=== PATIENT | male | born 1985 | race Caucasian/White ===

== ENCOUNTER 2018-10-01 06:19 | Emergency (ER) | payer BC ==
[~2018-10-01] VITALS: Ht 177.8 cm; Wt 90.7 kg
--- OUTSIDE RECORDS SUMMARY | 2018-10-01 06:22 | XMS REPORT | Continuity of Care Document ---
Author Author [facility] Interface Address Unknown Phone Unavailable Problems Problem Status Onset Date Classification Date Reported Comments Source Onychomycosis Active Diagnosis 04/11/2017 Elton A Destineeisphilippes Unspecified disease of nail Active Problem 04/11/2017 Elton A Maislos Onychomycosis - Dermatophytosis of nail Active Problem 04/11/2017 Elton A Maislos Nail abnormality Active Problem 04/11/2017 Elton A Maislos Tinea pedis of both feet Active Problem 04/11/2017 Elton A Maislos Bunion Hallux Valgus acquired Active Problem 04/11/2017 Elton A Maislos Tinea Pedis/Athletes foot - Dermatophytosis of foot Active Problem 04/11/2017 Elton A Maislos Bunion of great toe of left foot Active Problem 04/11/2017 Elton A Maislos Bunion of right foot Active Problem 04/11/2017 Elton A Destineeisphilippes Medications Medication Details Route Status Patient Instructions Ordering Provider Order Date Source Allergies, Adverse Reactions, Alerts Substance Category Reaction Severity Reaction type Status Date Reported Comments Source N.K.D.A. Adverse Reaction Info Not Available Adverse Reaction Active 04/08/2017 Elton Ruddy Normans Immunizations Immunization Date Given Site Status Last Updated Comments Source Results Order Name Results Value Reference Range Date Interpretation Comments Source Vital Signs Vital Sign Value Date Comments Source Weight 236 08/22/2013 Elton A Maislos Heart Rate 93 08/22/2013 Elton A Maislos Diastolic (mm Hg) 85 08/22/2013 Elton A Maislos Systolic (mm Hg) 138 08/22/2013 Elton A Maislos Weight 236 07/19/2013 Elton A Maislos Heart Rate 87 07/19/2013 Elton A Maislos Diastolic (mm Hg) 72 07/19/2013 Elton A Maislos Systolic (mm Hg) 128 07/19/2013 Elton Fox [place] Weight 236 07/12/2013 Elton A Bettye Heart Rate 87 07/12/2013 Elton Fox [place] Diastolic (mm Hg) 72 07/12/2013 Elton Fox [place] Systolic (mm Hg) 128 07/12/2013 Elton Fox [place] Encounters Location Location Details Encounter Type Encounter Number Reason For Visit Attending Provider ADM Date DC Date Status Source Elton Wen DPM, NICKI new patient [id number] 07/12/2013 07/12/2013 Elton Wen DPM, NICKI new patient [id number] 07/12/2013 07/12/2013 Elton Wen DPM, NICKI new patient [id number] 07/12/2013 07/12/2013 Elton Wen DPM, NICKI new patient [id number] 07/12/2013 07/12/2013 Elton Wen DPM, NICKI Follow- Up [id number] 07/19/2013 07/19/2013 Elton Wen DPM, PA Follow- Up [id number] 07/19/2013 07/19/2013 Elton Wen DPM, PA Unknown [id number] 07/19/2013 07/19/2013 Elton Wen DPM, PA Unknown [id number] 07/19/2013 07/19/2013 Elton Wen DPM, PA Unknown [id number] 07/19/2013 07/19/2013 Elton Wen DPM, PA Unknown [id number] 07/19/2013 07/19/2013 Elton Wen DPM, PA Follow- Up [id number] 08/22/2013 08/22/2013 Elton Wen Procedures Procedure Code Date Perfomer Comments Source
--- OUTSIDE RECORDS SUMMARY | 2018-10-01 06:22 | XMS REPORT | Clinical Summary ---
Author Author [employer] Organization [employer] Address Unknown Phone Unavailable Care Team Providers Care Blanker Operator Name Role Phone Asked, No Pcp PCP Unavailable Allergies Comments Active Allergy Reactions Severity Noted Date No Known Drug Allergies 04/08/2016 Medications End Date Status Medication Sig Dispensed Refills Start Date Active metoprolol tartrate Take 25 mg by 0 (LOPRESSOR) 25 mg tablet mouth as needed. Active ODEFSEY 200-25-25 mg Take 1 tablet 90 tablet 2 tablet by mouth 8 daily. 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 Encounters Care Team Description Date Type Specialty Monica Cooper MD Human immunodeficiency virus I infection (Primary Dx); manager intermediate use of drug 06/22/2018 Office Visit Infectious Diseases Valeria Dorsey MA 06/22/2018 Refill Infectious Diseases Monica Cooper MD Human immunodeficiency virus I infection; manager intermediate use of drug 04/30/2018 Lab Lab Monica Cooper MD Human immunodeficiency virus I infection (Primary Dx); manager intermediate use of drug 04/26/2018 Telephone Infectious Diseases Monica Cooper MD 04/22/2018 Lab Lab after 09/30/2017 Social History Date Tobacco Use Types Packs/Day Years Used Never Smoker Smokeless Tobacco: Never Used Alcohol Use Drinks/Week oz/Week Comments Yes social Sex Assigned at Date Recorded Not on file Industry Job Start Date Occupation Not on file Not on file Not on file Travel End Travel History Travel Start No recent travel history available. Last Filed Vital Signs Time Taken Vital Sign Reading 06/22/2018 9:05 AM CDT Blood Pressure 135/76 06/22/2018 9:05 AM CDT Pulse 85 06/22/2018 9:05 AM CDT Temperature 36.9 C (98.5 F) - Respiratory Rate - 06/22/2018 9:05 AM CDT Oxygen Saturation 95% - Inhaled Oxygen - Concentration 06/22/2018 9:05 AM CDT Weight 100 kg (221 lb) - Height - - Body Mass Index - Plan of Treatment Care Team Description Date Type Specialty Monica Cooper MD [address] [facility] [address] [place] [address] [phone] 12/28/2018 Office Visit Infectious Diseases Health Maintenance Due Date Last Done Comments MMR VACCINES (1 of - 1988 Standard series) VARICELLA VACCINES (1 2000 2 - 2-dose adolescent series) INFLUENZA VACCINE 06/02/2018 HEPATITIS B VACCINES Aged Out No longer eligible based on patient's age to complete this topic IPV VACCINES Aged Out No longer eligible based on patient's age to complete this topic MENINGOCOCCAL VACCINE Aged Out No longer eligible based on patient's age to complete this topic Procedures Comments Procedure Name Priority Date/Time Associated Diagnosis HIV-1 GENOTYPING Routine 04/30/2018 2:35 PM CDT HIV-1 INTEGRASE GENOTYPE Routine 04/30/2018 2:35 PM CDT URINALYSIS, COMPLETE, Routine 04/30/2018 Human immunodeficiency WITH REFLEX TO CULTURE 2:35 PM CDT virus I infection manager intermediate use of drug HEPATITIS C ANTIBODY Routine 04/30/2018 Human immunodeficiency 2:35 PM CDT virus I infection manager intermediate use of drug HEPATITIS A ANTIBODY Routine 04/30/2018 Human immunodeficiency TOTAL 2:35 PM CDT virus I infection manager intermediate use of drug HEPATITIS B SURFACE Routine 04/30/2018 Human immunodeficiency ANTIGEN 2:35 PM CDT virus I infection correction use of drug HEPATITIS B SURFACE Routine 04/30/2018 Human immunodeficiency ANTIBODY 2:35 PM CDT virus I infection correction use of drug HEPATITIS B CORE ANTIBODY Routine 04/30/2018 Human immunodeficiency TOTAL 2:35 PM CDT virus I infection correction use of drug RPR (MONITOR) WITH REFLEX Routine 04/30/2018 Human immunodeficiency TO TITER (REFL) 2:35 PM CDT virus I infection correction use of drug TB GOLD QUANTIFERON Routine 04/30/2018 Human immunodeficiency 2:35 PM CDT virus I infection correction use of drug [id number] [id number] TEST Routine 04/30/2018 Human immunodeficiency 2:35 PM CDT virus I infection manager intermediate use of drug TOXOPLASMA ABS IGG/IGM Routine 04/30/2018 Human immunodeficiency 2:35 PM CDT virus I infection correction use of drug T CELL LYMPHOCYTE SUBSET Routine 04/30/2018 Human immunodeficiency PANEL 4 2:35 PM CDT virus I infection manager intermediate use of drug HIV 1 RNA, QUANTITATIVE Routine 04/30/2018 Human immunodeficiency REAL TIME PCR 2:35 PM CDT virus I infection correction use of drug LIPID PANEL Routine 04/30/2018 Human immunodeficiency 2:35 PM CDT virus I infection manager intermediate use of drug COMPREHENSIVE METABOLIC Routine 04/30/2018 Human immunodeficiency PANEL 2:35 PM CDT virus I infection correction use of drug CBC WITH PLATELET AND Routine 04/30/2018 Human immunodeficiency DIFFERENTIAL 2:35 PM CDT virus I infection correction use of drug after 09/30/2017 Results * HIV-1 Integrase genotype (04/30/2018 2:35 PM CDT) Value of last viral load B copies/mL [facility] Date viral load collected B [facility] Raltegravir resistance TNP [facility] Comment: TEST(S) NOT PERFORMED: RALTEGRAVIR RESISTANCE ELVITEGRAVIR RESISTANCE DOLUTEGRAVIR RESISTANCE Test Not Performed We were unable to obtain a genotype from this sample. Reasons for failure to genotype commonly include: insufficient viral load, mutations in the genome at the priming sites, or presence of PCR inhibitors. Please correlate this result with a recent load for this patient, and resubmit a new sample if warranted. Resulting Agency Comment Performing Organization Information: Site ID: [id number] Name: [facility] Address: [address] [place] [phone] Director: Bryan Gardner MD Performing Organization Address [facility] [place] [facility] Centercode Phone Number [facility] [address] [place] [address] [phone] * Toxoplasma Abs IgG/IgM (04/30/2018 2:35 PM CDT) Toxoplasma IgG <7.20 IU/mL [facility] Comment: [facility] II IU/mL Interpretation ------ <7.20 Negative 7.20-8.79E quivocal >8.79 Positive Toxoplasma IgM <8.00 AU/mL [facility] Comment: [facility] AU/mL II Interpretation ----- <8.00 Negative 8.00-9.99 Equivocal >9.99 Positive Specimen Blood Resulting Agency Comment Performing Organization Information: Site ID: [id number] Name: [facility] Address: [address] [place] [phone] Director: Dr. Wayne Salter Performing Organization Address [facility]/[place] [facility] Centercode Phone Number [facility] [address] [place] [phone] II * T cell Lymphocyte Subset Panel 4 (04/30/2018 2:35 PM CDT) CD4% 42 30 - 61 % [facility] CD4 absolute count 1,115 490 - 1,740 cells/uL [facility] II CD8% 19 12 - 42 % [facility] CD8 absolute count 499 180 - 1,170 cells/uL [facility] CD4/CD8 ratio 2.24 0.86 - 5.00 [facility] II Lymphocytes, absolute 2,658 850 - 3,900 cells/uL [facility] II Specimen Blood Resulting Agency Comment Performing Organization Information: Site ID: [id number] Name: [facility] Address: [address] [place] [phone] Director: Dr. Wayne Salter Performing Organization Address City/[facility]/Zipcode Phone Number [facility] [address] [place] [address] II * RPR (Monitor) with Reflex to Titer (REFL) (04/30/2018 2:35 PM CDT) RPR (monitor) w/refl NON-REACTIVE NON-REACTIVE [facility] titer KEELER Specimen Blood Resulting Agency Comment Performing Organization Information: Site ID: [id number] Name: [facility] Address: [address] [place] [phone] Director: Eunice Kwon Performing Organization Address [facility] [place] [facility] Centercode Phone Number [facility] [address] [address] * URINALYSIS, COMPLETE, WITH REFLEX TO CULTURE (04/30/2018 2:35 PM CDT) Color, UA YELLOW YELLOW [facility] Appearance CLEAR CLEAR [facility] Specific gravity, urine 1.010 1.001 - 1.035 [facility] KE[facility] pH, urine 6.0 5.0 - 8.0 [facility] Glucose, urine NEGATIVE NEGATIVE [facility] Bilirubin, UA NEGATIVE NEGATIVE [facility] Ketones, UA NEGATIVE NEGATIVE [facility] Occult blood, urine NEGATIVE NEGATIVE [facility] Protein, UA NEGATIVE NEGATIVE [facility] Nitrite, UA NEGATIVE NEGATIVE [facility] Leukocyte esterase, UA NEGATIVE NEGATIVE [facility] WBC, UA NONE SEEN < OR=5 /HPF [facility] RBC, UA NONE SEEN < OR=2 /HPF [facility] Squamous epithelial NONE SEEN < OR=5 /HPF [facility] cells, UA KEELER Bacteria, UA NONE SEEN NONE SEEN /HPF [facility] Hyaline casts, UA NONE SEEN NONE SEEN /LPF [facility] Reflex NO CULTURE INDICATED [facility] Resulting Agency Comment Performing Organization Information: Site ID: [id number] Name: [facility] Address: [address] [place] [phone] Director: Eunice Kwon Performing Organization Address City/[facility]/Zipcode Phone Number [facility] [address] [address] * HIV 1 RNA, QUANTITATIVE REAL TIME PCR (04/30/2018 2:35 PM CDT) HIV-1 RNA by PCR, Qn <20 NOT DETECTED NOT DETECTED copies/[facility] II HIV-1 RNA by PCR, Qn <1.30 NOT DETECTED NOT DETECTED [facility] Comment: copies/[facility] This test was performed using II Real-Time Polymerase Chain Reaction. Reportable Range: 20 copies/mL to 10,000,000 copies/mL (1.30 log copies/mL to 7.00 log copies/mL). Resulting Agency Comment Performing Organization Information: Site ID: Name: [facility] Address: [address] [place] [address] Director: Dr. Wayne Salter Performing Organization Address City/[facility]/[place] [facility] Centercotx Phone Number [place] [facility] [place] [address] II * HLA B5701 test (04/30/2018 2:35 PM CDT) HLA B 5701 typing Negative [facility] Comment: [employer] The allele HLA-B*5701 is CHANTILLY associated with Abacavir hypersensitivity reaction (HSR). A negative result for HLA-B*5701 does not rule out the possibility of Abacavir HSR. Genetic counseling as needed. RESULTS REVIEWED BY: Susy Lockwood, Ph.D.,[facility] Jeweler Apprentice, Molecular Genetics References: Lee Lebron, et al. Lancet. 2002 2:359(6655): 727-32 Lee Lebron et al. N Engl J Med. 2008 358(6): 568-79 Typing performed by using -PCR with reflex to the FDA-cleared LABType(R) SSO Kit. The -PCR portion of this test was developed and its analytical performance characteristics have been determined by [facility] [place], [place].It has not been cleared or approved by the U.S. Food and Drug Administration.This assay has been validated pursuant to the CLIA regulations and is used for clinical purposes. Resulting Agency Comment Performing Organization Information: Site ID: AMD Name: [facility] Address: [address] [place] [phone] Director: Terrance French M.D.,PhD Performing Organization Address City/State/Zipcode Phone Number [facility]/[place] [address] [place], [place] [phone] [place] * TB GOLD Quantiferon (04/30/2018 2:35 PM CDT) Quantiferon TB gold NEGATIVE NEGATIVE [facility] Comment: KEELER Negative test result. M. tuberculosis complex infection unlikely. Quantiferon NIL value 0.02 IU/mL [facility] Quantiferon mitogen NIL >10.00 IU/mL [facility] value KEELER Quantiferon TB NIL value <0.00 IU/mL [facility] Comment: KEELER The Nil tube value is used to determine if the patient has a preexisting immune response which could cause a false-positive reading on the test. In order for a test to be valid, the Nil tube must have a value of less than or equal to 8.0 IU/mL. The mitogen control tube is used to assure the patient has a healthy immune status and also serves as a control for correct blood handling and incubation. It is used to detect false-negative readings. The mitogen tube must have a gamma interferon value of greater than or equal to 0.5 IU/mL higher than the value of the Nil tube. The TB antigen tube is coated with the M. tuberculosis specific antigens. For a test to be considered positive, the TB antigen tube value minus the Nil tube value must be greater than or equal to 0.35 IU/mL. For additional information, please refer to http://education.[employer].com/faq/QFT (This link is being provided for informational/ educational purposes only.) Specimen Blood Resulting Agency Comment Performing Organization Information: Site ID: RGA Name: [facility] Address: [address] [place] [phone] Director: Eunice Kwon Performing Organization Address [facility]/Zipcode Phone Number [facility] [place] [phone] * HIV-1 genotyping (04/30/2018 2:35 PM CDT) HIV-1 genotype NOT DETECTED [facility] Comment: We are unable to obtain a Genotype from this sample. The most common reasons for failure to genotype are insufficient viral load, mutations in the viral genome at the assay priming sites, and presence of inhibitory substance in the sample. Please correlate this result with any recent viral load for this patient and resubmit if clinically warranted. A minimum viral load of 400 copies/mL is required for testing. HIV Subtype: NOT DETERMINED Antiretroviral drugsResistance Mutations Detected Predicte d ! ! NRTIs ! ! ZDV (zidovudine or Retrovir)!N/A! ABC (abacavir or Ziagen)!N/A! ddI (didanosine or Videx) !N/A! 3TC (lamivudine or Epivir)!N/A! FTC (emtricitabine or Emtriva)!N/A! d4T (stavudine or Zerit)!N/A! TDF (tenofovir or Viread) !N/A! __!___! ! ! NNRTIs ! ! ETR (etravirine or Intelence) !N/A! EFV (efavirenz or Sustiva)!N/A! NVP (nevirapine or Viramune)!N/A! RPV (rilpivirine or Edurant)!N/A! __!___! ! ! PIs ! ! FPV (fos-amprenavir or Lexiva)!N/A! IDV (indinavir or Crixivan) !N/A! NFV (nelfinavir or Viracept)!N/A! SQV (saquinavir or Invirase)!N/A! LPV (lopinavir or Kaletra)!N/A! ATV (atazanavir or Reyataz) !N/A! TPV (tipranavir or Aptivus) !N/A! DRV (darunavir or Prezista) !N/A! ! ! __!___! PRB=PROBABLE OR EMERGING RESISTANCE OTHER MUTATIONS DETECTED: RT GENE MUTATIONS: N/A [place] GENE MUTATIONS: N/A The [facility] March 2018 Interpretation Algorithm The method used in this test is RT-PCR and sequencing Of the HIV-1 polymerase gene. The phrases "resistance predicted" and "probable Or emerging resistance" refer to the application of The interpretive rules. The FDA has not reviewed all of the interpretive rules used by the laboratory to predict drug resistance. FDA may not currently recognize some of the HIV gene mutations reported as predictive of drug resistance, but the laboratory considers these mutations to be associated with resistance to anti-viral drugs based on current clinical or scientific studies. The test has been validated pursuant to CLIA regulations and is not considered investigational or for research use only. Treatment decisions should be made in consideration of All relevant clinical and laboratory findings and the prescribing information for the drugs. This test was developed and its analytical performance characteristics have been determined by [facility]. It has not been cleared or approvedby FDA. This assay has been validated pursuant to theCLIA regulations and is used for clinical purposes. Resulting Agency Comment Performing Organization Information: Site ID: [id number] Name: [facility] Address: [address] [place] [phone] Director: Bryan Gardner MD Performing Organization Address City/State/Zipcode Phone Number [facility] [address] [place], [place] [phone] * Hepatitis C antibody (04/30/2018 2:35 PM CDT) Hepatitis C Ab NON-REACTIVE NON-REACTIVE [facility] Signal/cutoff 0.02 <1.00 [facility] KE[facility]ER Specimen Blood Resulting Agency Comment Performing Organization Information: Site ID: RGA Name: [facility] Address: [address] [place] [phone] Director: Eunice Kwon Performing Organization Address [facility]/[place] [facility] Centercode [place] [address] * Hepatitis A antibody total (04/30/2018 2:35 PM CDT) Hepatitis A total Ab NON-REACTIVE NON-REACTIVE [facility] KE[facility]ER Specimen Blood Resulting Agency Comment Performing Organization Information: Site ID: RGA Name: [facility] Address: [address] [place] [phone] Director: Eunice Kwon Performing Organization Address [facility]/[place] [facility] Centercode [place] [address] * Hepatitis B core antibody total (04/30/2018 2:35 PM CDT) Hepatitis B core total Ab NON-REACTIVE NON-REACTIVE [facility] Specimen Blood Resulting Agency Comment Performing Organization Information: Site ID: RGA Name: [facility] Address: [address] [place] [phone] Director: Eunice Kwon Performing Organization Address City/State/Zipcode Phone Number [facility] [address] [address] * Hepatitis B surface antibody (04/30/2018 2:35 PM CDT) Hepatitis B surface Ab REACTIVE (A) NON-REACTIVE [facility] KE[facility] Specimen Blood Resulting Agency Comment Performing Organization Information: Site ID: RGA Name: [facility] Address: [address] [place] [phone] Director: Eunice Kwon Performing Organization Address City/[facility]/[place] [facility] Centercode Phone Number [employer] [facility] [address] [place] [address] * Hepatitis B surface antigen (04/30/2018 2:35 PM CDT) Hepatitis B surface Ag NON-REACTIVE NON-REACTIVE [facility] Specimen Blood Resulting Agency Comment Performing Organization Information: Site ID: A Name: [facility] Address: [address] [place] [phone] Director: Eunice Kwon Performing Organization Address City/State/[place] [facility] Centercode Phone Number [facility] [address] [place] [address] * CBC with platelet and differential (04/30/2018 2:35 PM CDT) WBC 6.2 3.8 - 10.8 Thousand/uL [facility] RBC 4.84 4.20 - 5.80 Million/uL [facility] HGB 15.6 13.2 - 17.1 g/dL [facility] HCT 44.7 38.5 - 50.0 % [facility] MCV 92.4 80.0 - 100.0 fL [facility] MCH 32.2 27.0 - 33.0 pg [facility] MCHC 34.9 32.0 - 36.0 g/dL [facility] RDW 12.6 11.0 - 15.0 % [facility] Platelet count 224 140 - 400 Thousand/uL [facility] MPV 11.6 7.5 - 12.5 fL [facility] Neutrophils, absolute 2,802 1,500 - 7,800 cells/uL [facility] Lymphocytes, absolute 2,598 850 - 3,900 cells/uL [facility] Monocytes, absolute 626 200 - 950 cells/uL [facility] Eosinophils, absolute 112 15 - 500 cells/uL [facility] Basophils, absolute 62 0 - 200 cells/uL [facility] Neutrophils 45.2 % [facility] Lymphocytes 41.9 % [facility] Monocytes 10.1 % [facility] Eosinophils 1.8 % [facility] Basophils + RC 1.0 % [facility] Specimen Blood Resulting Agency Comment Performing Organization Information: Site ID: [id number] Name: [facility] Address: [address] [place] [phone] Director: Eunice Kwon Performing Organization Address [facility]/[place] [facility] Centercotx Phone Number [employer] [address] [address] * Lipid panel (04/30/2018 2:35 PM CDT) Cholesterol, total 203 (H) <200 mg/dL [facility] HDL cholesterol 46 >40 mg/dL [facility] Triglycerides 112 <150 mg/dL [facility] LDL cholesterol 135 (H) mg/dL (calc) [facility] [employer] [facility] Comment: KEELER Reference range: <100 Desirable range <100 mg/dL for primary prevention; <70 mg/dL for patients with CHD or diabetic patients with > or=2 CHD risk factors. LDL-C is now calculated using the Prabha calculation, which is a validated novel method providing better accuracy than the Friedewald equation in the estimation of LDL-C. Branden SORTO et al. CHELLE. 2013;310(19): 2102-7430 (http://education.[facility] Plus/faq/YJX023) Cholesterol/HDL ratio 4.4 <5.0 (calc) [facility] Non-HDL cholesterol 157 (H) <130 mg/dL (calc) [facility] Comment: KEELER For patients with diabetes plus 1 major ASCVD risk factor, treating to a non-HDL-C goal of <100 mg/dL (LDL-C of <70 mg/dL) is considered a therapeutic option. Specimen Blood Resulting Agency Comment Performing Organization Information: Site ID: RGA Name: [facility] Address: [address] [place] [phone] Director: Eunice Kwon Performing Organization Address [facility] [place] [facility]x Phone Number [employer] [address] [address] * Comprehensive metabolic panel (04/30/2018 2:35 PM CDT) Glucose 102 (H) 65 - 99 mg/dL [facility] Comment: KEELER Fasting reference interval For someone without known diabetes, a glucose value between 100 and 125 mg/dL is consistent with prediabetes and should be confirmed with a follow-up test. BUN, whole blood 22 7 - 25 mg/dL [facility] Creatinine 0.82 0.60 - 1.35 mg/dL [facility] EGFR Non-Afr. Citizen Of [place] 119 > OR=60 mL/min/1.73m2 [facility] EGFR 138 > OR=60 mL/min/1.73m2 [facility] BUN/creatinine ratio NOT APPLICABLE 6 - 22 (calc) [facility] Sodium 136 135 - 146 mmol/L [facility] Potassium 4.2 3.5 - 5.3 mmol/L [facility] Chloride 104 98 - 110 mmol/L [facility] CO2 25 20 - 31 mmol/L [facility] Calcium 9.8 8.6 - 10.3 mg/dL [facility] Protein 7.5 6.1 - 8.1 g/dL [facility] Albumin, S 4.9 3.6 - 5.1 g/dL [facility] Globulin, total 2.6 1.9 - 3.7 g/dL (calc) [facility] Albumin/globulin ratio 1.9 1.0 - 2.5 (calc) [facility] Total bilirubin 0.6 0.2 - 1.2 mg/dL [facility] Alkaline phosphatase 54 40 - 115 U/L [facility] AST 18 10 - 40 U/L [facility] ALT 33 9 - 46 U/L [facility] Specimen Blood Resulting Agency Comment Performing Organization Information: Site ID: RGA Name: [facility] Address: [address] [place] [phone] Director: Eunice Kwon Performing Organization Address City/State/Zipcode Phone Number [facility] [address] [place] [address] after 09/30/2017 Insurance Payer Benefit Subscriber ID Type Phone Address Plan / Group BCBS BCBS xxxxxxxxxxxx PPO CHOICE PPO/FEDERA L EMPL PPO Advance Directives Patient has advance care planning documents on file. For more information, kevin oconnor contact: Isaac Paz [address] [place] [address]
--- OUTSIDE RECORDS SUMMARY | 2018-10-01 06:22 | XMS REPORT ---
Author Author Elton Wen Organization [employer] Address Unknown Phone Unavailable Care Team Providers Care Business Project Manager Name Role Phone Elton Wen CP Unavailable Allergies, Adverse Reactions, Alerts Substance Reaction Event Type N.K.D.A. Info Not Available Non Drug Allergy Problems Problem Type Condition Code Onset Dates Condition Status Assessment Onychomycosis B35.1 Active Problem Unspecified disease of nail 703.9 Active Problem Onychomycosis - Dermatophytosis of nail 110.1 Active Problem Nail abnormality L60.9 Active Problem Tinea pedis of both feet B35.3 Active Problem Onychomycosis B35.1 Active Problem Bunion Hallux Valgus acquired 735.0 Active Problem Tinea Pedis/Athletes foot - Dermatophytosis of foot 110.4 Active Problem Bunion of great toe of left foot M21.612 Active Problem Bunion of right foot M21.611 Active Assessment Tinea pedis of both feet B35.3 Active Assessment Bunion of right foot M21.611 Active Assessment Bunion of great toe of left foot M21.612 Active Assessment Nail abnormality L60.9 Active Medications No Known Medications Results No Known Results Summary Purpose [employer] Submission
--- OUTSIDE RECORDS SUMMARY | 2018-10-01 06:22 | XMS REPORT ---
Author Author Elton Wen Organization [employer] Address Unknown Phone Unavailable Care Team Providers Care Automation Lead Name Role Phone Elton Wen CP Unavailable [...]
--- OUTSIDE RECORDS SUMMARY | 2018-10-01 06:23 | XMS REPORT ---
Author Author Elton Wen Organization [employer] Address Unknown Phone Unavailable Care Team Providers Care Logistics Manager Name Role Phone Elton Wen CP Unavailable Encounters Encounter Location Date Unknown [facility] Jul 19, 2013 new patient [facility] [place] Jul 12, 2013 Problems Problem Type Condition ICD-9 Code Onset Dates Condition Status Problem Unspecified disease of nail 703.9 Active Problem Onychomycosis - Dermatophytosis of nail 110.1 Active Problem Tinea Pedis/Athletes foot - Dermatophytosis of foot 110.4 Active Assessment Onychomycosis - Dermatophytosis of nail 110.1 Active Assessment Tinea Pedis/Athletes foot - Dermatophytosis of foot 110.4 Active Assessment Unspecified disease of nail 703.9 Active Social History Social History Element Qualifiers Date Reported Illegal Drugs no. Jul 12, 2013 Tobacco Use: . Are you a:: current smoker , How often do you smoke cigarettes?: every day, How many cigarettes a day do you smoke?: 11-20 Jul 12, 2013 Alcohol: socially. 7 glasses of wine Jul 12, 2013 Family history Qualifier Description Comment Date Reported Mother alive Comment not available Jul 12, 2013 Father alive Comment not available Jul 12, 2013 Vital Signs Date/Time: Jul 12, 2013 Weight 236 lbs Cardiac Monitoring Heart Rate 87 Beats per Minute Blood Pressure Diastolic 72 mm Hg Blood Pressure Systolic 128 mm Hg Summary Purpose [employer] Submission
--- OUTSIDE RECORDS SUMMARY | 2018-10-01 06:23 | XMS REPORT ---
Author Author Elton Wen Organization [employer] Address Unknown Phone Unavailable Care Team Providers Care Environmental Test Technician Name Role Phone Elton Wen Unavailable Encounters Encounter Location Date Follow-Up [facility] Aug 22, 2013 Unknown [facility] Jul 19, 2013 new patient [facility] Jul 12, 2013 Follow-Up [facility] Jul 19, 2013 Problems Problem Type Condition ICD-9 Code Onset Dates Condition Status Assessment Onychomycosis - Dermatophytosis of nail 110.1 Active Problem Tinea Pedis/Athletes foot - Dermatophytosis of foot 110.4 Active Problem Unspecified disease of nail 703.9 Active Problem Bunion Hallux Valgus acquired 735.0 Active Assessment Tinea Pedis/Athletes foot - Dermatophytosis of foot 110.4 Active Assessment Unspecified disease of nail 703.9 Active Problem Onychomycosis - Dermatophytosis of nail 110.1 Active Assessment Bunion Hallux Valgus acquired 735.0 Active Social History Social History Element Qualifiers Date Reported Illegal Drugs no. Aug 22, 2013 Tobacco Use: . Are you a:: current smoker , How often do you smoke cigarettes?: every day, How many cigarettes a day do you smoke?: 11-Aug 22, 2013 Alcohol: socially. 7 glasses of wine Aug 22, 2013 Family history Qualifier Description Comment Date Reported Mother alive Comment not available Aug 22, 2013 Father alive Comment not available Aug 22, 2013 Vital Signs Date/Time: Aug 22, 2013 Weight 236 lbs Cardiac Monitoring Heart Rate 93 Beats per Minute Blood Pressure Diastolic 85 mm Hg Blood Pressure Systolic 138 mm Hg Summary Purpose [employer] Submission
--- OUTSIDE RECORDS SUMMARY | 2018-10-01 06:23 | XMS REPORT ---
Author Author Elton Wen Organization [employer] Address Unknown Phone Unavailable Care Team Providers Care Hand Lacer Name Role Phone Elton Wen Unavailable Encounters Encounter Location Date Unknown Elton [...] Qualifiers Date Reported Illegal Drugs no. Jul 19, 2013 Tobacco Use: . Are you a:: current smoker , How often do you smoke cigarettes?: every day, How many cigarettes a day do you smoke?: 11-20 Jul 19, 2013 Alcohol: socially. 7 glasses of wine Jul 19, 2013 Family history Qualifier Description Comment Date Reported Mother alive Comment not available Jul 19, 2013 Father alive Comment not available Jul 19, 2013 Vital Signs Date/Time: Jul 19, 2013 Weight 236 lbs Cardiac Monitoring Heart Rate 87 Beats per Minute Blood Pressure Diastolic 72 mm Hg Blood Pressure Systolic 128 mm Hg Summary Purpose [employer] Submission
--- OUTSIDE RECORDS SUMMARY | 2018-10-01 06:23 | XMS REPORT ---
Author Author Elton Wen Organization [employer] Address Unknown Phone Unavailable Care Team Providers Care President [employer] Name Role Phone Elton Wen CP Unavailable Encounters Encounter Location Date Unknown [facility] [place] Jul 19, 2013 new patient [facility] [place] Jul 12, 2013 Problems Problem Type Condition ICD-9 Code Onset Dates Condition Status Problem Unspecified disease of nail 703.9 Active Problem Onychomycosis - Dermatophytosis of nail 110.1 Active Problem Tinea Pedis/Athletes foot - Dermatophytosis of foot 110.4 Active Social History Social History Element Qualifiers Date Reported Illegal Drugs no. Jul 19, 2013 Tobacco Use: . Are you a:: current smoker , How often do you smoke cigarettes?: every day, How many cigarettes a day do you smoke?: -Jul 19, 2013 Alcohol: socially. 7 glasses of wine Jul 19, 2013 Vital Signs Date/Time: Jul 19, 2013 Weight 236 lbs Cardiac Monitoring Heart Rate 87 Beats per Minute Blood Pressure Diastolic 72 mm Hg Blood Pressure Systolic 128 mm Hg Summary Purpose [employer] Submission
--- NOTE | 2018-10-01 07:41 | Diagnostic Imaging Report ---
PROCEDURE:CXR 2 VIEW - [facility]D COMPARISON:None. INDICATIONS:chest pain FINDINGS:Lungs are well-inflated. No focal airspace consolidation, pleural effusion, or pneumothorax. Cardiomediastinal contour and pulmonary vasculature are within normal limits no acute osseous abnormality. CONCLUSION: No acute cardiopulmonary abnormality. Dictated by: Maximiliano Obrien M.D. on 10/01/2018 at 7:51 Electronically approved by: Maximiliano Obrien M.D. on 10/01/2018 at 7:51
== END 2018-10-01 08:11 | disposition home or self-care (01) ==
LOC: FSED 06:19
DX: R07.89 Other chest pain (principal); R10.12 Left upper quadrant pain
CPT/HCPCS: 71046; 81003; 93005; 99284